=== PATIENT | male | born 1960 | race Caucasian/White ===

== ENCOUNTER → 2016-12-09 | Outpatient (CLI) | payer OTHER | LOC: COL.RAD 09:42 | DX: Z85.520 Personal history of malignant carcinoid tumor of kidney (principal); Z90.5 Acquired absence of kidney ==

== ENCOUNTER → 2018-11-24 | Outpatient (CLI) | payer BC | LOC: COL.RAD 10:20 | DX: Z85.520 Personal history of malignant carcinoid tumor of kidney (principal); Z90.5 Acquired absence of kidney ==

== ENCOUNTER 2019-06-08 05:32 | Day surgery (SDC) | payer BC ==
[~2019-06-08] VITALS: Ht 175.3 cm; Wt 88.3 kg
[2019-06-08] VITALS (10 sets, daily range): BP systolic 123–145; BP diastolic 76–97; PULSE 79–95; TEMP 97.4–97.6
[2019-06-08] MEDS ORDERED: CYMBALTA 30MG30 MG PO (06:27)
--- NOTE | 2019-06-08 06:43 | NUR ---
Patient per cart to PACU for block placement pre-op. Report to Nora BLACKMAN.
--- NOTE | 2019-06-08 10:25 | NUR ---
Patient returns to room 1 per cart from PACU and is awake and alert. Temp 98.5 and sats 98% on 2L per nasal cannula. Incisions x3 on left side of abdomen dry and covered with soto set. IV fluids infusing #18g LH. Call light in reach and spouse in room. Given ice chips. Allowed to rest. Denies need for pain medication or nausea.
--- NOTE | 2019-06-08 10:40 | NUR ---
Resting without complaints. Taking ice chips.
[2019-06-08] MEDS ORDERED: NORCO 325 MG-51 TAB PO (10:44)
[2019-06-08] MEDS ORDERED: MOTRIN 600600 MG/TAB PO (10:45)
[2019-06-08] MEDS ORDERED: TYLENOL 325MG325 MG PO (10:46)
--- NOTE | 2019-06-08 10:55 | NUR ---
Resting and denies pain or nausea. Continues to take ice chips.
--- NOTE | 2019-06-08 11:10 | NUR ---
Sipping on black coffee and drinking water.
--- NOTE | 2019-06-08 11:25 | NUR ---
Eating muffin. Denies pain or nausea. Spouse in room.
--- NOTE | 2019-06-08 11:55 | NUR ---
Tolerated muffin and denies nausea. Rates pain at 6/10 now. States it is worse with movement.
--- NOTE | 2019-06-08 11:57 | NUR ---
Medicated with [place] 5mg one tab. Encouraged to rest. Sipping on coffee.
--- NOTE | 2019-06-08 12:25 | NUR ---
Resting and states that the pain medication is beginning to give him some relief.
--- NOTE | 2019-06-08 13:05 | NUR ---
Assisted up to the bathroom and gait is steady.
--- NOTE | 2019-06-08 13:15 | NUR ---
Given Motrin 600mg for pain rating at 5/10. Was able to void and returns to room. IV discontinued and patient is able to dress self.
--- NOTE | 2019-06-08 13:27 | NUR ---
Given dismissal instructions and voices understanding of these. Provided script for Rodney 5mg and provided follow up appointment card.
--- NOTE | 2019-06-08 13:35 | NUR ---
Patient dismissed to home driven by spouse and taken to the front door per wheelchair by RN and assisted into car with instructions in hand.
== END 2019-06-08 13:35 | disposition home or self-care (01) ==
LOC: SDCO 05:32
DX: K43.2 Incisional hernia without obstruction or gangrene (principal); K42.9 Umbilical hernia without obstruction or gangrene; K66.0 Peritoneal adhesions (postprocedural) (postinfection); Z85.528 Personal history of other malignant neoplasm of kidney; Z90.5 Acquired absence of kidney; Z79.899 Other long term (current) drug therapy; F17.228 Nicotine dependence, chewing tobacco, with other nicotine-induced disorders; Z88.0 Allergy status to penicillin
CPT/HCPCS: C1781; J0690; J1100; J1170; J2250; J2405; J2704; J3010; J7120

== ENCOUNTER → 2021-01-03 | Outpatient (CLI) | payer BC ==
[~2021-01-03] MED LIST: CYMBALTA 30MG30 MG PO; MOTRIN 600600 MG/TAB PO; NORCO 325 MG-51 TAB PO; TYLENOL 325MG325 MG PO
== END ==
LOC: COL.RAD 08:34 → COL.LAB 08:34 → COL.RAD 09:45
DX: Z90.5 Acquired absence of kidney (principal); Z85.520 Personal history of malignant carcinoid tumor of kidney; Z96.0 Presence of urogenital implants; R35.1 Nocturia

== ENCOUNTER → 2022-12-09 | Outpatient (CLI) | payer BC | LOC: COL.RAD 11:34 | DX: N32.89 Other specified disorders of bladder (principal); Z90.5 Acquired absence of kidney; Z85.520 Personal history of malignant carcinoid tumor of kidney ==